=== PATIENT | male | born 1965 | race Caucasian/White ===

== ENCOUNTER 2017-03-11 19:15 | Emergency (ER) | payer OTHER ==
[2017-03-11 19:43] VITALS: BP 154/93; PULSE 104; RESP 16; TEMP 97.6; O2SAT 99
== END 2017-03-11 20:37 | disposition home or self-care (01) | DRG 563 ==
LOC: ED 19:15
DX: S43.402A Unspecified sprain of left shoulder joint, initial encounter (principal); V80.010A Animal-rider injured by fall from or being thrown from horse in noncollision accident, initial encounter
CPT/HCPCS: 71020; 73030; 99282

== ENCOUNTER 2017-08-15 06:51 | Day surgery (SDC) | payer OTHER ==
[2017-08-15] MEDS ORDERED: PROPOFOL 500 MG/50 ML EMU IV ONE ×2 (07:30→08:03)
[2017-08-15] MEDS ORDERED: LIDOCAINE HCL 1% MPF SOL ONE (07:41)
[2017-08-15] MEDS ORDERED: FENTANYL 100MCG/2ML SOL ONE (07:42)
[2017-08-15] MEDS ORDERED: BUPIVACAINE LIPOSOME 20 ML SUS ONE (07:44)
[2017-08-15] MEDS ORDERED: BUPIVACAINE/EPI 0.5% 10 ML SOL INFIL ONE (07:44)
[2017-08-15] MEDS ORDERED: ONDANSETRON HCL 4 MG/2 ML SOL ONE (08:23)
[2017-08-15 09:08] VITALS: RESP 20
[2017-08-15] MEDS ORDERED: NALOXONE HYDROCHLORIDE 0.4 MG/ML SOL ONE (09:10)
[2017-08-15 09:20] VITALS: TEMP 97.9
[2017-08-15 09:31] VITALS: BP 119/80; PULSE 75; O2SAT 97
== END 2017-08-15 10:00 | disposition home or self-care (01) | DRG 379 ==
LOC: SURG 06:51
PROVIDERS: ATTEND Surgery
DX: K62.5 Hemorrhage of anus and rectum (principal); K52.9 Noninfective gastroenteritis and colitis, unspecified; K60.3 Anal fistula; K64.4 Residual hemorrhoidal skin tags; K64.8 Other hemorrhoids
CPT/HCPCS: J0330; J2310; J2405; J3010; J2001; J2704

== ENCOUNTER 2019-03-17 13:47 | Outpatient (CLI) | payer OTHER ==
[2017-08-15 09:31] VITALS: O2SAT 97
== END 2019-03-17 13:48 | disposition home or self-care (01) | DRG 556 ==
LOC: CONVCARE 13:47
PROVIDERS: ATTEND Orthopaedic Surgery
DX: M25.512 Pain in left shoulder (principal); M75.42 Impingement syndrome of left shoulder
CPT/HCPCS: 73030